=== PATIENT | female | born 1980 | race Caucasian/White ===

== ENCOUNTER 2016-12-07 16:05 | Inpatient (IN) | payer OTHER ==
[~2016-12-07] VITALS: Ht 162.6 cm; Wt 93.9 kg
[~2016-12-07 16:05] MED LIST: Docusate Sodium PO; Hydrocodone/Acetaminophen PO; Ibuprofen PO; PREN1TAB25 PO
[2016-12-07] MEDS ORDERED: Carboprost 250 mCg/mL Inj IM PRN (16:20)
[2016-12-07] MEDS ORDERED: Oxytocin 30 Units/500 mL LR 30 UNITS in IV Premix 1 EACH IV PRN (16:20)
[2016-12-07] MEDS ORDERED: Lactated Ringer's 1,000 ML IV PRN (16:20)
[2016-12-07] MEDS ORDERED: Ondansetron 2 mg/mL 2 mL Inj IVPUSH PRN ×2 (16:20→22:10)
[2016-12-07] MEDS ORDERED: Methylergonovine 0.2 mg/mL Inj IM PRN (16:20)
[2016-12-07] MEDS ORDERED: fentaNYL-PF 50 mCg/mL 2 mL Inj IVPUSH PRN (16:20)
[2016-12-07] MEDS ORDERED: Oxytocin 10 Unit/mL Inj IM PRN (16:20)
[2016-12-07] MEDS ORDERED: Hemorrhage Kit, Post Partum XX ONE (16:20)
[2016-12-07] MEDS ORDERED: Sodium Chloride LOK Flush 10 mL Syringe IVFLUSH PRN (16:20)
[2016-12-07] MEDS ORDERED: PREN1TAB87 PO (17:10)
[2016-12-07 17:29] LABS: Mean Corpuscular Volume 89.5 fL (81-100)
[2016-12-07] MEDS ORDERED: Lactated Ringer's 1,000 ML IV SCH (22:06)
[2016-12-07] MEDS ORDERED: Lactated Ringer's 500 ML IV ONE (22:06)
[2016-12-07] MEDS ORDERED: Atropine 1 mg/10 mL (Code) Syringe IVPUSH PRN (22:10)
[2016-12-07] MEDS ORDERED: fentaNYL 2 mCg/mL-Bupiv 0.125% 100 ML EPIDURAL SCH (22:10)
[2016-12-07] MEDS ORDERED: EPHEDrine Sulfate 50 mg/mL Inj IVPUSH PRN (22:10)
--- NOTE | 2016-12-07 22:49 | PCM.HPANE ---
Patient Data Date of Service: Dec 07, 2016 Surgeon Admitting Provider:Ashok Hernandez MD Attending Provider:Ashok Hernandez MD Primary Care Physician:Samia Hernandez MD Other Provider: Reason for Visit Term Labor Check TERM LABOR CHECK Ht/WT & BMI Height (Centimeters): 162.5 Weight (Kilograms): 93.9 Body Mass Index 35.5 Allergies Coded Allergies: No Known Allergies (Verified Allergy, Unknown, 07/20/14) Past Anesthesia History Anesthesia History: Denies:: Abnormal Airway, Difficult Intubation Diabetes History Hx Diabetes?: No MRSA MRSA: No Medications Hypertension Medication: No Home Meds Incl Beta Miriam: No Active Scripts [Ibuprofen] (Motrin)800 MG TABLET No Conflict [id number] Mg PO Q6H PRN For Pain # 30 TABLET Ref 1 Prov:Ashok Hernandez MD 07/22/14 [Hydrocodone/Acetaminophen] ([place] 5-325)1 TAB TABLET No Conflict Check1-2 Tab PO Q4H PRN For Pain #15 TABLET Ref 0 Prov:Ashok Hernandez MD 07/22/14 [Docusate Sodium] (Colace)100 MG CAPSULE No Conflict [id number] Mg PO BID #60 CAPSULE Ref 2 Prov:Ashok Hernandez MD 07/22/14 Reported Medications Vit W-Ca,Fe,FA(<1 mg) ( Vitamins)1 Each Tablet1 Each PO DAILY 12/07/16 Vit#96/Ferrous Fum/FA ( Tablet)1 Each Tablet1 Each PO DAILY 07/20/14 History History of ENT Problems?: No HEENT History: Denies:: Abnormal Airway Difficult Intubation Denture Type: None Teeth Condition: Within Normal Limits Hx of Heart Problems?: No Cardiovascular History: Denies:: Hypertension Hx of Respiratory Problem?: No Respiratory History: Denies:: Asthma Oxygen Administration Hx Neurologic Problems?: No Hx of GI Problems?: No Hx of Problems?: No HX of Peritoneal Dialysis: No Female Hx: Positive for:: Currently Hx Musculoskeletal Problems?: No Hx of Psycho/Social Problems?: No Hx Surgeries?: No Hx Any Other Health Problems?: No Hx Diabetes: No Hx Alcohol Use: NoHx Substance Use: No Smoking Status: Never Smoker Stop/Bang Treated for Sleep Apnea?: No Do You Have a CPAP Machine?: No JESSEE Risk Assessment: Low Risk, <3 Yes Risk Assessment Category Category 1A: Patient has history of documented sleep apnea, and HAS NOT received any narcotic, sedative or anesthesia administration during this stay. Category 1B: Patient has history of documented sleep apnea, and HAS received any narcotic , sedative or anesthesia administration during this stay Category 2: Patient has SUSPECTED Obstructive Sleep Apnea, and HAS received any narcotic , sedative or anesthesia administration during this stay. Category 3: Patient has SUSPECTED Obstructive Sleep Apnea and HAS NOT received narcotic, sedative or anesthesia administration during this stay. Category 4: Outpatient in Procedural Areas with known sleep apnea or who screen positive for High Risk via the STOP/BANG questionnaire. Exam Exam General Appearance: Alert, Oriented X3, Cooperative HEENT/AIRWAY: MP 1, Neck Movement (Full), Mouth Opening Lungs: Clear to Auscultation, Normal Air Movement Heart: Regular Rate/Rhythm, Normal S1, Normal S2 Meds/Labs/Diagnostics Labs Test 12/07/16 17:12 White Blood Count 13.5th/mm3 (3.8-10.1) Red Blood Count 4.20mil/mm3 (3.90-5.20) Hemoglobin 12.6g/dL (12.0-15.6) Hematocrit 37.6% (35.0-46.0) Mean Corpuscular Volume 89.5fL (81-100) Mean Corpuscular Hemoglobin 30.0pg (27.0-35.0) Mean Corpuscular Hemoglobin Concent 33.5% (32.0-37.0) Red Cell Distribution Width 14.0% (12.3-15.4) Platelet Count 221bil/L (150-400) Plan Impression Patient chart reviewed, patient interviewed and anesthestic plan with risks, benefits, and alternatives discussed, and informed consent obtained. NPO per Anesth. Guidelines: No (OB) ASA Physical Status: ASA2 Mod Systemic Disease Anesthetic Plan: Epidural Bene/Risks/Altern/Consents: Yes HP Complete Prior to Induction: Yes Joce Wu MD Dec 07, 2016 22:07
[2016-12-08] MEDS ORDERED: Lactated Ringer's 1,000 ML IV SCH (00:26)
[2016-12-08] MEDS ORDERED: Methylergonovine 0.2 mg/mL Inj IM PRN (00:30)
[2016-12-08] MEDS ORDERED: Oxytocin 10 Unit/mL Inj IM PRN (00:30)
[2016-12-08] MEDS ORDERED: Carboprost 250 mCg/mL Inj IM PRN (00:30)
[2016-12-08] MEDS ORDERED: Witch Hazel-Glycerin Pads TOPICAL PRN (00:30)
[2016-12-08] MEDS ORDERED: Hemorrhage Kit, Post Partum XX ONE (00:30)
[2016-12-08] MEDS ORDERED: Benzocaine (Dermoplast) 20% 60 Gm Spray TOPICAL PRN (00:30)
[2016-12-08] MEDS ORDERED: Oxytocin 30 Units/500 mL LR 30 UNITS in IV Premix 1 EACH IV PRN (00:30)
[2016-12-08] MEDS ORDERED: Sodium Chloride LOK Flush 10 mL Syringe IVFLUSH SCH (00:30)
[2016-12-08] MEDS ORDERED: LANOlin HPA 7 Gm Ointment TOPICAL PRN (00:30)
[2016-12-08] MEDS ORDERED: oxyCODONE-Acetamin 5-325 mg Tablet PO PRN (00:30)
[2016-12-08] MEDS: HYDROcodone-APAP 5-325 mg Tablet PO PRN ×5 (03:53→20:54)
--- NOTE | 2016-12-08 04:26 | PROCED ---
[address] [address] PROCEDURE NOTE PATIENT: CORRY SEPULVEDA : 1980 MR#: [id number] ADMIT: 12/07/2016 JOB ID: [id number] DATE OF SERVICE: 12/07/2016 POSTOPERATIVE DIAGNOSIS(ES): PREOPERATIVE DIAGNOSIS(ES): SURGEON: DELIVERY SUMMARY: On December 07, 2016 at 11:52 p.m. this 35-year-old, G2, P1, female at 40 weeks estimated gestational age delivered a vigorous infant male weighing 8 pounds 6 ounces and with Apgars of 9 and 9. The patient presented with spontaneous rupture of membranes at about 3:30 this afternoon. She had ruptured at 1:30 p.m. The fluid was noted to be clear. She was not jeol with any sort of regularity. We watched her for a couple of hours and then started Pitocin. She did well with this and changed to 6 cm from 3 cm dilation and then required an epidural. The patient progressed in usual fashion to complete and +2 station. At this point there were decelerations into the 60s and 70s. Fortunately, the patient was able to push quite well and over just a few pushes pushed her baby out. Of note is that there was a nuchal cord x1 which was reduced. The immediately cried and was delivered onto the patient. The cord was not cut right away. About a minute and a half to 2 minutes went by before we clamped and cut the cord. Cord blood was sent for analysis. The placenta delivered approximately 5 minutes later spontaneously and intact with a three-vessel cord. The patient's uterus was found to be firm. Her cervix intact and her rectum intact. There was a second-degree midline perineal laceration that was noted. This was repaired in the usual fashion with 3-0 Vicryl. One external stitch was placed to create a better cosmetic effect. The patient tolerated all this very well. Estimated blood loss was 200-300 cc. Counts were correct x2. There were no other complications of delivery. Pitocin was kept running status post delivery.
--- NOTE | 2016-12-09 05:37 | PCM.DC.OB ---
Obstetrical Discharge Summary Date of Service Dec 09, 2016 Date of hospital admission Dec 07, 2016 at 16:20 Date of Discharge: Dec 09, 2016 Providers Admitting Physician: Ashok Norton MD Primary Care Physician: Samia Norton MD Attending Physician: Ashok Norton MD Problems: (1) Normal vaginal delivery Status: Acute ICD Code: O80 Consultations None Invasive procedures NVD Date of Procedure: Dec 08, 2016 Hospital Course: Patient presented in labor and delivered in excellent fashion...recovered well. ([Docusate Sodium]) 100 MG CAPSULE 100 MG PO BID Prescribed by: ASHOK NORTON MD ([Hydrocodone/Acetaminophen]) 1 TAB TABLET 1-2 TAB PO Q4H PRN PRN For Pain Prescribed by: ASHOK NORTON MD ([Ibuprofen]) 800 MG TABLET 800 MG PO Q6H PRN PRN For Pain Prescribed by: ASHOK NORTON MD Vit W-Ca,Fe,FA(<1 mg) ( Vitamins) 1 Each Tablet 1 EACH PO DAILY (Reported) Vit#96/Ferrous Fum/FA ( Tablet) 1 Each Tablet 1 EACH PO DAILY ( Reported) Follow-up plan see me in 8 weeks Discharge Diet: No restrictions Discharge Activity-General: Pelvic Rest for 6 weeks, Try not to overdue, Be up and about, Balance rest and activity, Activity as pain allows, Activity as energy allows, No lifting >15 pounds for 2 weeks Ashok Norton MD Dec 09, 2016 05:37
--- NOTE | 2016-12-09 05:39 | PCM.DIOB ---
Obstetrical Disch Instruction Date of Service: Dec 09, 2016 Dates of Hospitalization Date of Hospital Admission Dec 07, 2016 at 16:20 Providers Admitting Physician: Ashok Hernandez MD Primary Care Physician: Samia Hernandez MD Attending Physician: Ashok Hernandez MD Discharge Diagnosis Problems: (1) Normal vaginal delivery Status: Acute ICD Code: O80 Diet Discharge Diet: No restrictions Activity Discharge Activity-General: Pelvic Rest for 6 weeks, Be up and about, Balance rest and activity, Activity as pain allows, Activity as energy allows, No lifting >15 pounds for 2 weeks Dressing and Incisional Care Hygiene: May shower, Perineal care, Sitz bath, Dermoplast spray, Witch Autumn pads Follow Up Plan Follow-up Provider (F9): Ashok Hernandez MD Follow-up appointment: Weeks (8) Call your provider for: Fever or Chills, Shortness of breath, Heavy vaginal bleeding, Excessive constipation, Red painful breasts Ashok Hernandez MD Dec 09, 2016 05:39
[2016-12-09] MEDS ORDERED: IBUP800T28 PO (05:41)
[2016-12-09] MEDS ORDERED: HYDR-4003 PO (05:41)
== END 2016-12-09 06:18 | disposition home or self-care (01) | DRG 775 ==
LOC: FBCO 16:05 → FBC 16:20
PROVIDERS: ADMIT Family Medicine; ATTEND Family Medicine
PROC: 10E0XZZ Delivery of Products of Conception, External Approach (ICD-10-PCS; principal; 2016-12-07)
PROC: 0KQM0ZZ Repair Perineum Muscle, Open Approach (ICD-10-PCS; 2016-12-07)
DX: O69.1XX0 Labor and delivery complicated by cord around neck, with compression, not applicable or unspecified (principal); O70.1 Second degree perineal laceration during delivery; Z37.0 Single live birth; Z3A.40 40 weeks gestation of pregnancy; O42.02 Full-term premature rupture of membranes, onset of labor within 24 hours of rupture